=== PATIENT | female | born 1935 | race Caucasian/White ===

== ENCOUNTER 2016-12-23 21:59 | Inpatient (IN) ==
[2016-12-23] MEDS: SALINE FLUSH 10ml SYRINGE IVF PRN (22:33)
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
[2016-12-23] MEDS ORDERED: NS 1,000 ML IV ONE (23:00)
[2016-12-23] MEDS ORDERED: ALBUTEROL 2.5mg/3ml (0.083%) NEB AEROSOL ONE (23:00)
[2016-12-24] MEDS ORDERED: FLUCONAZOLE 150 MG TABLET PO ONE (01:12)
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
[2016-12-24] MEDS: NS 1,000 ML IV SCH ×2 (02:38→12:25)
[2016-12-24] MEDS: PANTOPRAZOLE 20 MG TABLET PO SCH (05:33)
[2016-12-24] MEDS: MULTI-VITAMIN PLAIN TABLET PO SCH (15:36)
[2016-12-24] MEDS: ACETAMINOPHEN 325 MG TABLET PO PRN (20:56)
[2016-12-25] MEDS: IBUPROFEN 400 MG TABLET PO PRN ×2 (00:03→08:10)
[2016-12-25] MEDS: HYDROCODONE/APAP 5mg/325mg TABLET PO PRN ×2 (02:41→09:57)
[2016-12-25] MEDS: LEVOTHYROXINE 25 MCG TABLET PO SCH (06:00)
[2016-12-25] MEDS: PANTOPRAZOLE 20 MG TABLET PO SCH (06:00)
[2016-12-25] MEDS: NS 1,000 ML IV SCH (06:27)
[2016-12-25] MEDS: MULTI-VITAMIN PLAIN TABLET PO SCH (08:10)
[2016-12-25] MEDS ORDERED: TRAMADOL 50 MG TABLET PO PRN (14:15)
[2016-12-25] MEDS: TRAMADOL 50 MG TABLET PO PRN ×2 (15:08→22:39)
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
[2016-12-26] MEDS: SALINE FLUSH 10ml SYRINGE IVF PRN (00:23)
[2016-12-26] MEDS: NS 1,000 ML IV SCH ×2 (01:29→08:41)
[2016-12-26] MEDS: TRAMADOL 50 MG TABLET PO PRN (05:25)
[2016-12-26] MEDS: LEVOTHYROXINE 25 MCG TABLET PO SCH (05:40)
[2016-12-26] MEDS: PANTOPRAZOLE 20 MG TABLET PO SCH (05:40)
[2016-12-26] MEDS: IBUPROFEN 400 MG TABLET PO PRN (09:26)
[2016-12-26] MEDS: MULTI-VITAMIN PLAIN TABLET PO SCH (09:32)
--- NOTE | 2016-12-26 16:13 | Wound Care Progress Note ---
Wound Management - Patient Status Premedicated Prior to Dressing Change: No - Wound Left Heel Wound Type: Pressure Injury Wound Present on Admission?: No Wound Staging: Unstageable Length: 1.5 Width: 2 Depth: 0.1 Wound Bed Appearance: Eschar Tunneling: No Undermining: No Drainage Amount: None Drainage Odor: No Odor Dressing Status: Open to Air Primary Dressing: Foam Dressing (Eschar pressure injury POA) Dressing Change Date: 12/26/16 Dressing Change Time: 16:14 Dressing Change Patient Tolerance: Tolerated Well
--- NOTE | 2016-12-26 16:17 | Wound Care Progress Note ---
Wound Management - Patient Status Premedicated Prior to Dressing Change: No - Wound Right Heel Wound Type: Pressure Injury Wound Present on Admission?: Yes (POA from Nursing facility in [place]) Wound Staging: Unstageable Length: 1 Width: 1 Depth: 0.1 Wound Bed Appearance: Eschar Tunneling: No Undermining: No Drainage Amount: None Drainage Odor: No Odor Dressing Status: Dry & Intact Primary Dressing: Foam Dressing (Eschar Right Heel Pressure Injury POA)
--- NOTE | 2016-12-26 16:19 | Wound Care Progress Note ---
Wound Management - Patient Status Premedicated Prior to Dressing Change: No - Wound Upper Medial Back Wound Type: Pressure Injury Wound Present on Admission?: Yes (POA) Wound Staging: Stage II Length: 2 Width: 1 Depth: 0.1 Wound Bed Appearance: Beefy Red Drainage Amount: None Drainage Odor: No Odor Dressing Status: Changed Primary Dressing: Foam Dressing (Pt has bd back bone) Dressing Change Date: 12/26/16 (m) Dressing Change Time: 16:18 Dressing Change Patient Tolerance: Tolerated Well
--- NOTE | 2016-12-26 16:22 | Wound Care Progress Note ---
Wound Management - Wound Lower Medial Back Wound Type: Pressure Injury Wound Present on Admission?: Yes Wound Staging: Stage III Length: 0.5 Width: 0.5 Depth: 0.1 Wound Bed Appearance: Slough Christina Wound Appearance: Bright Red Tunneling: No Undermining: No Drainage Description: Serous Drainage Amount: Scant Drainage Odor: No Odor Dressing Status: Changed Primary Dressing: Foam Dressing (Pt has a Stage III POA on db back, At this time covered with a foam drsg)
--- NOTE | 2016-12-26 16:23 | Wound Care Progress Note ---
Wound Center Progress Note: Multiple skin tears on Left arm and Right hand . Large tears are treated with Pomagren to wound beds and covered with mepilex and will leave for 7 days.
[2016-12-26] MEDS ORDERED: FUROSEMIDE 20 MG/2 ML INJECTION IVP ONE (17:13)
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
[2016-12-27] MEDS: TRAMADOL 50 MG TABLET PO PRN (04:09)
[2016-12-27] MEDS: NS 1,000 ML IV SCH (05:42)
[2016-12-27] MEDS: SALINE FLUSH 10ml SYRINGE IVF PRN (05:42)
[2016-12-27] MEDS: LEVOTHYROXINE 25 MCG TABLET PO SCH (06:32)
[2016-12-27] MEDS: PANTOPRAZOLE 20 MG TABLET PO SCH (06:32)
[2016-12-27] MEDS: MULTI-VITAMIN PLAIN TABLET PO SCH (09:18)
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
[2016-12-27 15:54] VITALS: BMI 19.3
[2016-12-28] MEDS: TRAMADOL 50 MG TABLET PO PRN ×2 (04:04→22:49)
[2016-12-28] MEDS: NS 1,000 ML IV SCH ×3 (05:33→05:36)
[2016-12-28] MEDS: LEVOTHYROXINE 25 MCG TABLET PO SCH (06:47)
[2016-12-28] MEDS: PANTOPRAZOLE 20 MG TABLET PO SCH (06:48)
[2016-12-28] MEDS: MULTI-VITAMIN PLAIN TABLET PO SCH (08:40)
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
[2016-12-28] MEDS ORDERED: POLYETHYL GLYCOL 3350 17gm PACKET PO PRN (16:41)
[2016-12-28] MEDS ORDERED: SENNA + DOCUSATE TABLET PO SCH (21:00)
[2016-12-29] MEDS ORDERED: SALINE FLUSH 10ml SYRINGE ONE (07:14)
[2016-12-29] MEDS ORDERED: NS 100 ML ONE (07:14)
[2016-12-29] MEDS ORDERED: IOHEXOL 300mg/ml 75ml INJECTION ONE (07:14)
[2016-12-29] MEDS: ONDANSETRON 4 MG/2 ML INJECTION IVP PRN (08:00)
[2016-12-29] MEDS: LEVOTHYROXINE 25 MCG TABLET PO SCH (08:00)
[2016-12-29] MEDS: PANTOPRAZOLE 20 MG TABLET PO SCH (08:00)
[2016-12-29] MEDS: TRAMADOL 50 MG TABLET PO PRN (08:01)
[2016-12-29] MEDS ORDERED: FLEET PHOSPHO - SODA ENEMA 133ml PR PRN (09:04)
--- NOTE | 2016-12-29 09:07 | CT Scan Report ---
Indication: retrouterine fluid collection described on past CT PROCEDURE: CT abdomen pelvis w con: Encounter: Initial Comparison: None Technique: Axial CT images were performed through the abdomen and pelvis after the administration of intravenous contrast. Coronal and sagittal two-dimensional reformats. Automated Exposure Control and Iterative Reconstruction dose reducing techniques were utilized. Contrast: Omnipaque 300 67 mL Findings: Moderate bilateral pleural effusions with compressive atelectasis in both lower lobes. Heart is enlarged. The liver is grossly normal. Evaluation is somewhat limited due to the lack of intra-abdominal fat. Gallbladder is normal. The spleen, pancreas and adrenal glands are within normal limits. Kidneys are normal. Arterial vascular calcifications. Focal low attenuation in both common femoral veins could be due to admixture of contrast or potentially deep vein thrombosis. Large amount of free pelvic fluid. Bladder is decompressed with a Garcia catheter. Large stool ball distending the rectum up to 7.7 cm in diameter. Fluid in the left adnexa with evidence of a large 7.2 cm left adnexal cyst. Large amount of stool throughout the colon. No evidence of a small bowel obstruction. There is evidence of a 3.5 cm long severe narrowing in the cecum which has the appearance of a "apple core" lesion on the coronal images. Anasarca. Bone windows show degenerative change and scoliosis in the spine without obvious lytic or blastic bony lesion. Impression: 1. Irregular narrowing or stricturing in the cecum, suspicious for a colon carcinoma. Recommend direct visualization with colonoscopy. 2. Changes in the common femoral veins that could represent deep vein thrombosis versus contrast admixture. Recommend correlation with DVT ultrasound study. 3. Moderate pleural effusions with ascites and severe anasarca consistent with a generalized volume overload. 4. Large cystic left adnexal lesion. This could be further evaluated with a pelvic ultrasound. Findings were discussed with the ordering physician at 0900 on December 29, 2016 .
[2016-12-29] MEDS ORDERED: POLYETHYL GLYCOL 3350 17gm PACKET PO SCH (09:15)
[2016-12-29] MEDS: MULTI-VITAMIN PLAIN TABLET PO SCH (09:57)
--- NOTE | 2016-12-29 10:38 | Ultrasound Report ---
Indication: Probable DVT PROCEDURE: US venous doppler LE BI: Encounter: Initial Comparison: CT abdomen and pelvis from today Technique: Color Doppler duplex and grayscale sonographic imaging of both lower extremities was performed. Findings: Bilateral deep vein thrombosis is seen. This is fairly extensive and is occlusive from the right common femoral vein through the mid superficial femoral. Lesser amounts of nonocclusive thrombus seen within the right distal superficial femoral and popliteal veins on the right. Occlusive deep vein thrombosis is seen in the left common femoral vein as well extending through the popliteal vein and into the posterior tibial veins of the calf. Impression: Extensive occlusive bilateral deep vein thrombosis. Results were discussed with the ordering physician Dr. Arias by telephone at 1034 on December 29, 2016. .
[2016-12-29] MEDS ORDERED: ENOXAPARIN 80 MG/0.8 ML INJECTION SQ ONE (13:04)
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
[2016-12-29] MEDS ORDERED: ERGOCALCIFEROL 50,000 UNIT CAPSULE PO SCH (15:45)
[2016-12-29] MEDS: BISACODYL 10 MG SUPPOSITORY RECTALLY SCH (19:46)
[2016-12-29] MEDS: POLYETHYL GLYCOL 3350 17gm PACKET PO SCH (20:21)
[2016-12-29] MEDS: SENNA + DOCUSATE TABLET PO SCH (20:22)
[2016-12-30] MEDS: BISACODYL 10 MG SUPPOSITORY RECTALLY SCH ×3 (00:46→13:47)
[2016-12-30] MEDS: TRAMADOL 50 MG TABLET PO PRN ×2 (03:59→11:16)
[2016-12-30] MEDS: PANTOPRAZOLE 20 MG TABLET PO SCH (05:52)
[2016-12-30] MEDS: LEVOTHYROXINE 25 MCG TABLET PO SCH (05:52)
[2016-12-30] MEDS: POLYETHYL GLYCOL 3350 17gm PACKET PO SCH ×2 (09:45→20:33)
[2016-12-30] MEDS: ENOXAPARIN 60 MG/0.6 ML INJECTION SQ SCH ×2 (09:45→20:33)
[2016-12-30] MEDS: MULTI-VITAMIN PLAIN TABLET PO SCH (09:46)
[2016-12-30] MEDS: SENNA + DOCUSATE TABLET PO SCH ×2 (09:46→20:33)
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
[2016-12-30] MEDS ORDERED: BISACODYL 10 MG SUPPOSITORY RECTALLY PRN (17:06)
[2016-12-31] MEDS: PANTOPRAZOLE 20 MG TABLET PO SCH (05:58)
[2016-12-31] MEDS: LEVOTHYROXINE 25 MCG TABLET PO SCH (05:58)
[2016-12-31] MEDS: ENOXAPARIN 80 MG/0.8 ML INJECTION SQ SCH (08:56)
[2016-12-31] MEDS: SENNA + DOCUSATE TABLET PO SCH ×2 (08:56→21:39)
[2016-12-31] MEDS: MULTI-VITAMIN PLAIN TABLET PO SCH (08:56)
[2016-12-31] MEDS: POLYETHYL GLYCOL 3350 17gm PACKET PO SCH ×2 (08:57→21:39)
[2016-12-31] MEDS ORDERED: MULTI VIT INFUSION IV SCH (15:00)
[2016-12-31] MEDS ORDERED: D5 IV SCH (15:00)
[2016-12-31] MEDS ORDERED: MULTI TRACE ELEMENTS IV SCH (15:00)
[2016-12-31] MEDS ORDERED: LACTULOSE 20 GM/30 ML ORAL LIQUID PO SCH (15:00)
[2016-12-31] MEDS ORDERED: [UNRECOGNIZED DRUG - OTHER] IV SCH (15:00)
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
[2016-12-31] MEDS ORDERED: MIRTAZAPINE 30 MG TABLET PO SCH (21:00)
[2017-01-01] MEDS: TRAMADOL 50 MG TABLET PO PRN (00:06)
[2017-01-01] MEDS: LEVOTHYROXINE 25 MCG TABLET PO SCH (06:05)
[2017-01-01] MEDS: PANTOPRAZOLE 20 MG TABLET PO SCH (06:05)
[2017-01-01] MEDS: ASCORBIC ACID 500 MG TABLET PO SCH (08:42)
[2017-01-01] MEDS: SENNA + DOCUSATE TABLET PO SCH ×2 (08:42→21:47)
[2017-01-01] MEDS: MULTI-VITAMIN PLAIN TABLET PO SCH (08:42)
[2017-01-01] MEDS: ENOXAPARIN 80 MG/0.8 ML INJECTION SQ SCH (08:42)
[2017-01-01] MEDS: POLYETHYL GLYCOL 3350 17gm PACKET PO SCH ×2 (08:45→21:47)
[2017-01-01] MEDS ORDERED: ACETAMINOPHEN 160mg/5ml ORAL LIQUID PO PRN (09:52)
[2017-01-01] MEDS: ZINC GLUCONATE 50 MG TABLET PO SCH (10:32)
--- NOTE | 2017-01-01 10:45 | XRay Report ---
Indication: constipation PROCEDURE: XR KUB: Encounter: Initial Comparison: CT abdomen and pelvis dated December 29, 2016 Findings: Bowel gas pattern is nonobstructive and nonspecific. Scattered gas throughout small and large bowel to the level of the rectum. Degenerative change and scoliosis in the spine. Arterial vascular calcifications. Overlying material causing artifact. Impression: No significant colonic stool burden. .
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
[2017-01-01] MEDS: HYDROCODONE/APAP 2.5mg-108mg/5ml ORAL LIQUID PO PRN (19:59)
[2017-01-02] MEDS ORDERED: CEFTRIAXONE 2 GM INJECTION IV SCH (02:30)
[2017-01-02] MEDS: HYDROCODONE/APAP 2.5mg-108mg/5ml ORAL LIQUID PO PRN (03:17)
[2017-01-02] MEDS: SALINE FLUSH 10ml SYRINGE IVF PRN (03:20)
[2017-01-02] MEDS: ONDANSETRON 4 MG/2 ML INJECTION IVP PRN (03:30)
[2017-01-02] MEDS ORDERED: NS FLUSH BAG 500ml IV PRN (03:33)
[2017-01-02] MEDS: PANTOPRAZOLE 20 MG TABLET PO SCH (06:24)
[2017-01-02] MEDS: LEVOTHYROXINE 25 MCG TABLET PO SCH (06:25)
[2017-01-02] MEDS: ASCORBIC ACID 500 MG TABLET PO SCH (10:49)
[2017-01-02] MEDS: MULTI-VITAMIN PLAIN TABLET PO SCH (10:49)
[2017-01-02] MEDS: SENNA + DOCUSATE TABLET PO SCH ×2 (10:49→21:00)
[2017-01-02] MEDS: POLYETHYL GLYCOL 3350 17gm PACKET PO SCH ×3 (10:50→21:00)
[2017-01-02] MEDS: ENOXAPARIN 80 MG/0.8 ML INJECTION SQ SCH (10:50)
[2017-01-02] MEDS: ZINC GLUCONATE 50 MG TABLET PO SCH (10:54)
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
[2017-01-02] MEDS: ACETAMINOPHEN 325 MG TABLET PO PRN ×2 (15:32→21:00)
--- NOTE | 2017-01-02 15:53 | Wound Care Progress Note ---
Wound Center Progress Note: Left arm drsg removed X 4 and 3 and of 4 wound are healed. At this time placing foam drsg for protection of new skin. Upper left arm still has seperation of skin, At this time promogren applied to open wound and foam drsg to cover. Changed back drsg at this time bottom wound is closing and top wound still remains open so Promogren applied and then covered with Mepilex.
[2017-01-02] MEDS ORDERED: CEFTRIAXONE 1 G in NS 100 ML IV SCH (20:00)
[2017-01-02] MEDS: TRAMADOL 50 MG TABLET PO PRN (23:46)
[2017-01-03] MEDS ORDERED: HYDROCODONE/APAP 10 MG/325 MG TABLET PO PRN (03:54)
[2017-01-03] MEDS: PANTOPRAZOLE 20 MG TABLET PO SCH (06:51)
[2017-01-03] MEDS: LEVOTHYROXINE 25 MCG TABLET PO SCH (06:51)
[2017-01-03] MEDS: POLYETHYL GLYCOL 3350 17gm PACKET PO SCH (09:17)
[2017-01-03] MEDS: ENOXAPARIN 80 MG/0.8 ML INJECTION SQ SCH (09:17)
[2017-01-03] MEDS: ASCORBIC ACID 500 MG TABLET PO SCH (09:18)
[2017-01-03] MEDS: MULTI-VITAMIN PLAIN TABLET PO SCH (09:18)
[2017-01-03] MEDS: ZINC GLUCONATE 50 MG TABLET PO SCH (09:18)
[2017-01-03] MEDS: SENNA + DOCUSATE TABLET PO SCH (09:20)
--- NOTE | 2017-01-03 11:08 | Echocardiogram ---
DATE OF SERVICE 01/02/2017 INDICATION Pleural effusion. TECHNICAL QUALITY Technically good 2-D, M-mode, Doppler echocardiographic images were submitted for interpretation. FINDINGS 1. CARDIAC CHAMBERS. All cardiac chamber measurements are normal. Aortic root diameter is normal. RV size and contractility appear normal. 2. LEFT VENTRICLE. Analysis reveals concentric LVH. Wall motion analysis is normal. Systolic function is normal. EF measured 62%. 3. VALVES. Aortic valve is trileaflet and exhibits moderate calcification and sclerosis especially involving the noncoronary cusp. Aortic valve opening appears to be mildly restricted suggestive of mild aortic valve stenosis although hemodynamics did not necessarily support that with a peak flow velocity of only 1.5 m/sec, peak and mean pressure gradient of 9 and 5 mmHg. Aortic valve area by continuity equation was 2.39 cm2 based on an LVOT diameter of 1.08 cm. Peak flow velocity at the LVOT level measured 1.62 m/sec which is increased, exhibits an early peak. Valsalva maneuver was not performed. No systolic anterior motion (DUARTE) appreciated and no turbulence at rest. Mitral and tricuspid valve structure and motion appeared normal. Normal valve excursion. 4. DOPPLER. Shows trace tricuspid regurgitation with systolic PA pressure estimated at 40 mmHg. There is trace mitral regurgitation present. 5. There is no evidence of pericardial effusion, intracardiac masses or demonstrable shunts. No significant mitral stenosis is present. 6. Central venous pressure is estimated to be normal. IMPRESSION 1. Normal cardiac chamber size. 2. Normal LV systolic function, EF of 62%. 3. Concentric LVH. 4. Mild diastolic dysfunction. 5. Aortic valve sclerosis, particularly focal calcification of the noncoronary cusp with restricted motion, without any significant aortic valve stenosis based on Doppler. 6. Mild pulmonary hypertension. 7. Normal central venous pressure. 8. Normal RV size and systolic function. MTDD
--- NOTE | 2017-01-03 12:25 | Discharge Instructions ---
Discharge Plan - Med Rec/Dispo Truv Instructions: Failure to Thrive (GEN) Additional Instructions: You will see Dr. Andres Layne's at [facility]. Prescriptions: New Acetaminophen Liq. [Tylenol Liquid] 650 mg PO Q5H PRN po.syringe PRN Reason: Pain Ascorbic Acid [Vitamin C] 500 mg PO DAILY tablet Bisacodyl Supp [Dulcolax] 10 mg RECTALLY Q6H PRN supp PRN Reason: Constipation /Stool Softening Ergocalciferol (Vit. D2) [Vitamin D-2] 50,000 unit PO Q7D capsule Multi-Vitamin Plain [Theragran] 1 tab PO DAILY tablet Polyethylene Glycol 3350 [Miralax] 17 gm PO DAILY PRN #10 powd.pack PRN Reason: Constipation Senna + Docusate [Senna Plus Tablet] 2 tab PO BID tablet Zinc Gluconate [Zinc] 50 mg PO DAILY tablet Enoxaparin Sodium [Lovenox] 75 mg SQ DAILY syringe Levothyroxine Tab [Synthroid] 25 mcg PO ACB tablet Pyridoxine [Vitamin B-6] 100 mg PO DAILY tablet Tramadol [Ultram] 50 mg PO Q6H PRN #30 tab PRN Reason: Pain Continue Omeprazole 20 mg PO DAILY Discontinued Azithromycin [Zithromax] 1 tab PO DAILY Mirtazapine [Remeron] 30 mg PO BID CloNIDine [Catapres] 1 tab PO DAILY Tramadol [Ultram] 50 mg PO BID PRN PRN Reason: Pain Discharge Instructions/Outpatient Orders: Final Provider Discharge Instructions Location: Determined By Patient - Disposition 03 To [facility] ([facility])
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
[2017-01-03 14:30] VITALS: BP 150/72; PULSE 90; RESP 18; TEMP 98.2; O2SAT 96
[2017-01-04] MEDS ORDERED: PYRIDOXINE 100mg TABLET PO SCH (09:00)
== END 2017-01-03 15:35 | DRG 640 ==
LOC: ED 21:59 → MED 12-24 00:59
PROVIDERS: ADMIT Internal Medicine; ATTEND Internal Medicine